=== PATIENT | female | born 1950 | race Two or more races ===

== ENCOUNTER 2017-12-17 13:19 | Outpatient (CLI) | payer OTHER ==
[~2017-12-17 13:19] MED LIST: BUMETANIDE1 MG; NEURONTIN300 MG; ZOCOR20 MG
== END 2017-12-17 13:32 | disposition home or self-care (01) ==
LOC: MAMO-SONO 13:19
DX: Z12.31 Encounter for screening mammogram for malignant neoplasm of breast (principal); Z87.898 Personal history of other specified conditions; I10 Essential (primary) hypertension; M54.5 Low back pain; E03.8 Other specified hypothyroidism; G62.89 Other specified polyneuropathies

== ENCOUNTER 2017-12-17 13:34 | Outpatient (CLI) | payer OTHER | END 2017-12-17 13:38 | disposition home or self-care (01) | LOC: RAD 13:34 | DX: M79.671 Pain in right foot (principal); I10 Essential (primary) hypertension; M54.5 Low back pain; E03.8 Other specified hypothyroidism; G62.89 Other specified polyneuropathies ==

== ENCOUNTER 2018-02-06 18:01 | Emergency (ER) | payer OTHER ==
[~2018-02-06] VITALS: Ht 147.3 cm; Wt 79.4 kg
== END 2018-02-06 22:31 | disposition home or self-care (01) ==
LOC: ER 18:01
DX: M54.2 Cervicalgia (principal); M54.5 Low back pain

== ENCOUNTER 2018-03-19 16:23 | Emergency (ER) | payer OTHER ==
[~2018-03-19] VITALS: Ht 147.3 cm; Wt 80.7 kg
[2018-03-19] MEDS ORDERED: SYNTHROID50 MCG PO (16:44)
== END 2018-03-19 20:16 | disposition home or self-care (01) ==
LOC: ER 16:23
DX: J22 Unspecified acute lower respiratory infection (principal); J11.1 Influenza due to unidentified influenza virus with other respiratory manifestations

== ENCOUNTER 2018-10-01 09:52 | Emergency (ER) | payer OTHER ==
[~2018-10-01] VITALS: Ht 152.4 cm; Wt 72.6 kg
[~2018-10-01 09:52] MED LIST changes: +SYNTHROID50 MCG PO
[2018-10-01] MEDS ORDERED: ASPIR 8181 MG (10:28)
[2018-10-01] MEDS ORDERED: ZITHROMAX TRI-500 MG PO (12:27)
[2018-10-01] MEDS ORDERED: TUSSI PRES-B L120 M1 PO (12:27)
[2018-10-01] MEDS ORDERED: MEDROLPACK PO (12:27)
== END 2018-10-01 12:44 | disposition home or self-care (01) ==
LOC: ER 09:52
DX: B34.9 Viral infection, unspecified (principal)

== ENCOUNTER 2021-10-03 13:52 | Outpatient (CLI) | payer OTHER ==
[~2021-10-03 13:52] MED LIST changes: +ASPIR 8181 MG; +MEDROLPACK PO; +TUSSI PRES-B L120 M1 PO; +ZITHROMAX TRI-500 MG PO
== END 2021-10-03 13:55 | disposition home or self-care (01) ==
LOC: NUCLEAR 13:52
DX: M81.0 Age-related osteoporosis without current pathological fracture (principal); Z13.820 Encounter for screening for osteoporosis

== ENCOUNTER 2022-03-01 11:40 | Outpatient (CLI) | payer OTHER | END 2022-03-01 11:49 | disposition home or self-care (01) | LOC: SONOGRAMA 11:40 | DX: M25.512 Pain in left shoulder (principal) ==

== ENCOUNTER 2022-03-09 10:48 | Outpatient (CLI) | payer OTHER | END 2022-03-09 10:55 | disposition home or self-care (01) | LOC: LAB 10:48 | PROVIDERS: ATTEND Radiology Diagnostic Radiology | DX: R41.3 Other amnesia (principal) ==

== ENCOUNTER → 2022-03-13 | Outpatient (CLI) | payer OTHER | END | disposition home or self-care (01) | LOC: MRI 10:29 | DX: M51.9 Unspecified thoracic, thoracolumbar and lumbosacral intervertebral disc disorder (principal); M62.830 Muscle spasm of back; R41.3 Other amnesia | CPT/HCPCS: 70553; 72148; Q9965 ==

== ENCOUNTER 2022-06-26 12:41 | Outpatient (CLI) | payer OTHER | END 2022-06-26 12:44 | disposition home or self-care (01) | LOC: RAD 12:41 | PROVIDERS: ATTEND Physical Medicine & Rehabilitation | DX: S60.211A Contusion of right wrist, initial encounter (principal); S60.221A Contusion of right hand, initial encounter ==

== ENCOUNTER 2022-09-25 12:11 | Outpatient (CLI) | payer OTHER | END 2022-09-25 12:15 | disposition home or self-care (01) | LOC: RAD 12:11 | PROVIDERS: ATTEND Physical Medicine & Rehabilitation | DX: M17.11 Unilateral primary osteoarthritis, right knee (principal); M25.561 Pain in right knee; W19.XXXA Unspecified fall, initial encounter ==

== ENCOUNTER 2023-03-15 14:10 | Outpatient (CLI) | payer OTHER | END 2023-03-15 14:23 | disposition home or self-care (01) | LOC: MRI 14:10 | DX: R47.81 Slurred speech (principal); I10 Essential (primary) hypertension | CPT/HCPCS: 70551 ==

== ENCOUNTER 2023-09-03 10:33 | Outpatient (CLI) | payer OTHER | END 2023-09-03 10:42 | disposition home or self-care (01) | LOC: SONOGRAMA 10:33 | PROVIDERS: ATTEND General Practice | DX: E03.8 Other specified hypothyroidism (principal) ==

== ENCOUNTER 2024-09-03 08:39 | Outpatient (CLI) | payer OTHER | END 2024-09-03 08:47 | disposition home or self-care (01) | LOC: TOM 08:39 | PROVIDERS: ATTEND General Practice | DX: R13.19 Other dysphagia (principal) ==